=== PATIENT | female | born 1995 | race Caucasian/White ===

== ENCOUNTER 2016-08-03 05:38 | Inpatient (IN) ==
[2016-08-03] MEDS ORDERED: Ondansetron 4 MG/2 ML VIAL IVP ONE ×2 (06:03→09:40)
[2016-08-03] MEDS ORDERED: 0.9 % Sodium Chloride 1,000 ML IVC ONE (06:03)
[2016-08-03] MEDS ORDERED: *HR* Morphine 2 MG/ML SYRINGE IVP ONE (06:03)
--- NOTE | 2016-08-03 06:08 | Emergency Department Note ---
Disposition Clinical Impression: Appendicitis Abdominal pain Qualifiers: Abdominal location: unspecified location Qualified Code(s): R10.9 - Unspecified abdominal pain Disposition: Admitted As Inpatient Condition: Good Abdominal Pain HPI - General Chief Complaint: ED Abdominal Pain Stated Complaint: vomiting abdominal pain Time Seen by Provider: 08/03/16 05:56 Source: patient Mode of arrival: ambulatory Limitations: no limitations Nursing Notes Reviewed: Yes Vital Signs Reviewed: Yes - History of Present Illness HPI Narrative: 21-year-old female persons for violation of abdominal pain. Patient states pain started 4 hours prior to arrival. No history of said pain in the past. She describes the pain is generalized but more prominent across her lower abdomen. No aggravating or alleviating symptoms identified. Patient has not tried any pain medication prior to arrival. Patient reports some nausea and vomiting following to pain. Patient reports history of constipation but had a bowel movement an hour prior to arrival. Denies any fever or chills. Denies any dysuria or hematuria. Reports that her last menstrual. Approximately a week and a half ago. No vaginal bleeding or discharge. No history of ovarian cysts. No chest pain or shortness of breath. No prior abdominal surgery. Pt Subjective Complaint: abdominal pain Onset (ago): hour(s) Consistency: constant Location: LLQ, RLQ Pain Scale: 9 - Related Data Home Medications Medication Instructions Recorded Confirmed No Known Home Drugs 08/03/16 08/03/16 Allergies Allergy/AdvReac Type Severity Reaction Status Date / Time codeine Allergy Hives Verified 08/03/16 05:41 Penicillins Allergy Hives Verified 08/03/16 05:41 All systems ED: reviewed and negative except as stated. Constitutional: Reports: as per HPI. Denies: fever, chills Eyes: Reports: as per HPI ENT ED: Reports: as per HPI Cardiovascular: Reports: as per HPI. Denies: chest pain Respiratory: Reports: as per HPI. Denies: dyspnea Gastrointestinal: Reports: as per HPI, abdominal pain, nausea, vomiting, constipation. Denies: diarrhea Genitourinary: Reports: as per HPI. Denies: dysuria Musculoskeletal: Reports: as per HPI Integumentary: Reports: as per HPI Neurological: Reports: as per HPI Psychiatric: Reports: as per HPI Endocrine: Reports: as per HPI Hematological/Lymphatic: Reports: as per HPI Abdominal Pain PMH - Past Medical History Medical history: Reports: no medical history Female Surgical History: Reports: other PHOTOGRAPHERS' MODEL history: Reports: no PHOTOGRAPHERS' MODEL history Psychiatric history: Reports: no psych history - Social History Smoking status: Current every day smoker Alcohol use: Reports: occasionally Drug use: Reports: none Physical Exam - General Limitations: no limitations General appearance: alert, in no apparent distress - Head Head exam: atraumatic, normal inspection - Eye Eye exam: Present: normal appearance, EOMI - ENT ENT exam: normal exam, mucous membranes moist - Neck Neck exam: Present: normal inspection, trachea midline - Chest Chest inspection: Present: normal inspection, symmetric chest wall rise - Respiratory Respiratory exam: Present: normal lung sounds bilaterally. Absent: respiratory distress - Cardiovascular Cardiovascular exam: Present: regular rate, normal rhythm - Abdominal Exam Abdominal exam: Present: soft, tenderness (Moderate tenderness with direct palpation of the lower abdomen), normal bowel sounds. Absent: distention, guarding, rebound - Extremities Exam Extremities exam: Present: normal inspection. Absent: pedal edema - Back Exam Back exam: Present: normal inspection. Absent: CVA tenderness (R), CVA tenderness (L) - Neurological Exam Neurological exam: Present: alert, oriented X3 - Skin Skin exam: Present: warm, dry, intact, normal color Course Course Narrative: Patient seen and examined. Patient's abdominal exam is nonsurgical. Patient's symptoms started 4 hours prior to arrival. Noted across the lower abdomen. Patient will eventually get IV fluids, symptomatic treatment, urine, urine was basic lab work. Vital Signs Temperature 97.4 F L 08/03/16 05:41 Pulse Rate 94 08/03/16 05:41 Respiratory Rate 20 08/03/16 05:41 Blood Pressure 149/87 08/03/16 05:41 O2 Sat by Pulse Oximetry 100 08/03/16 05:41 Temperature 98.2 F 08/05/16 05:18 Pulse Rate 77 08/05/16 05:18 Respiratory Rate 16 08/05/16 05:18 Blood Pressure 107/63 08/05/16 05:18 O2 Sat by Pulse Oximetry 95 08/05/16 05:18 Oxygen Delivery Oxygen Delivery Room Air Abdominal Pain - MDM Narrative Medical decision making narrative: 21-year-old female presents with bilateral lower abdominal pain. Pain started approximately 4 hours prior to arrival. Patient denies having history of ovarian cyst or pathology. Patient denies any vaginal bleeding discharge. LMP was a week and a half ago. Patient received IV fluids, pain control labs. At the time of this dictation the patient will be signed out to the oncoming providers. History is also physical exam findings discussed. Disposition is pending. - Lab Data Result diagrams: 08/05/16 03:37 08/03/16 07:00 Lab Results 08/03/16 08/03/16 08/03/16 Range/Units 07:00 07:00 07:49 WBC 15.6 H (4.3-11.1) K/mcL RBC 5.39 H (3.82-4.97) M/mcL Hgb 15.3 (11.5-15.4) g/dL Hct 46.9 H (35.3-44.9) % MCV 87.0 (83.0-100.0) fL MCH 28.4 (28.0-33.3) pg MCHC 32.6 (31.6-35.5) g/dL RDW 13.5 (11.5-14.5) % Plt Count 247 (140-400) K/mcL MPV 9.0 L (9.4-12.4) fL Immature Gran % 0.4 (0-4) % Seg Neutrophils % 87.4 % Lymphocytes % 6.4 % Monocytes % 4.5 % Eosinophils % 0.9 % Basophils % 0.4 % Neutrophils # 13.7 H (1.6-8.9) K/mcL Lymphocytes # 1.0 (0.6-4.6) K/mcL Monocytes # 0.7 (0.0-1.3) K/mcL Eosinophils # 0.1 (0.0-0.6) K/mcL Basophils # 0.1 (0.0-0.2) K/mcL Sodium 139 (136-145) mEq/L Potassium 4.0 (3.5-4.5) mEq/L Chloride 105 (98-109) mEq/L Carbon Dioxide 20 (19-29) mEq/L BUN 11 (7-20) mg/dL Creatinine 0.79 (0.57-1.11) mg/dL Est GFR ( Amer) > 60 (> 60) Est GFR (Non-Af Amer) > 60 (> 60) BUN/Creatinine Ratio 14 (6-26) Glucose 108 H (70-99) mg/dL Calculated Osmolality 288 (280-300) Lactic Acid (0.5-2.2) mmol/L Calcium 9.5 (8.6-10.8) mg/dL Total Bilirubin 0.3 (0.2-1.2) mg/dL Direct Bilirubin 0.1 (0.0-0.5) mg/dL Indirect Bilirubin 0.2 (0.0-1.2) mg/dL AST 19 (5-34) Units/L ALT 14 (0-55) Units/L Alkaline Phosphatase 60 (38-126) Units/L Serum Total Protein 8.0 (6.0-8.3) g/dL Albumin 4.0 (3.5-5.0) g/dL Globulin 4.0 H (2.4-3.5) g/dL Albumin/Globulin Ratio 1.0 L (1.1-2.2) Lipase 23 (8-78) Units/L Serum , Qual (Negative) Urine Color (Yellow) Urine Clarity (Clear) Urine pH (5.0-8.0) pH Units Ur Specific Wright (1.010-1.025) Urine Protein (Neg-Trace) mg/dL Urine Glucose (UA) (Normal) mg/dL Urine Ketones (Negative) mg/dL Urine Blood (Negative) Urine Nitrite (Negative) Urine Bilirubin (Negative) Urine Urobilinogen (Normal) mg/dL Ur Leukocyte Esterase (Negative) Ur Culture Indicated? (NO) Urine Test (Negative) Specimen Rejected Hemolyzed 08/03/16 08/03/16 08/03/16 Range/Units 08:06 08:06 08:25 WBC (4.3-11.1) K/mcL RBC (3.82-4.97) M/mcL Hgb (11.5-15.4) g/dL Hct (35.3-44.9) % MCV (83.0-100.0) fL MCH (28.0-33.3) pg MCHC (31.6-35.5) g/dL RDW (11.5-14.5) % Plt Count (140-400) K/mcL MPV (9.4-12.4) fL Immature Gran % (0-4) % Seg Neutrophils % % Lymphocytes % % Monocytes % % Eosinophils % % Basophils % % Neutrophils # (1.6-8.9) K/mcL Lymphocytes # (0.6-4.6) K/mcL Monocytes # (0.0-1.3) K/mcL Eosinophils # (0.0-0.6) K/mcL Basophils # (0.0-0.2) K/mcL Sodium (136-145) mEq/L Potassium (3.5-4.5) mEq/L Chloride (98-109) mEq/L Carbon Dioxide (19-29) mEq/L BUN (7-20) mg/dL Creatinine (0.57-1.11) mg/dL Est GFR ( Amer) (> 60) Est GFR (Non-Af Amer) (> 60) BUN/Creatinine Ratio (6-26) Glucose (70-99) mg/dL Calculated Osmolality (280-300) Lactic Acid 0.9 (0.5-2.2) mmol/L Calcium (8.6-10.8) mg/dL Total Bilirubin (0.2-1.2) mg/dL Direct Bilirubin (0.0-0.5) mg/dL Indirect Bilirubin (0.0-1.2) mg/dL AST (5-34) Units/L ALT (0-55) Units/L Alkaline Phosphatase (38-126) Units/L Serum Total Protein (6.0-8.3) g/dL Albumin (3.5-5.0) g/dL Globulin (2.4-3.5) g/dL Albumin/Globulin Ratio (1.1-2.2) Lipase (8-78) Units/L Serum , Qual (Negative) Urine Color Yellow (Yellow) Urine Clarity Clear (Clear) Urine pH 7.0 (5.0-8.0) pH Units Ur Specific Wright 1.025 (1.010-1.025) Urine Protein Negative (Neg-Trace) mg/dL Urine Glucose (UA) Normal (Normal) mg/dL Urine Ketones Negative (Negative) mg/dL Urine Blood Negative (Negative) Urine Nitrite Negative (Negative) Urine Bilirubin Negative (Negative) Urine Urobilinogen Normal (Normal) mg/dL Ur Leukocyte Esterase Negative (Negative) Ur Culture Indicated? NO (NO) Urine Test Negative (Negative) Specimen Rejected 08/03/16 Range/Units 08:25 WBC (4.3-11.1) K/mcL RBC (3.82-4.97) M/mcL Hgb (11.5-15.4) g/dL Hct (35.3-44.9) % MCV (83.0-100.0) fL MCH (28.0-33.3) pg MCHC (31.6-35.5) g/dL RDW (11.5-14.5) % Plt Count (140-400) K/mcL MPV (9.4-12.4) fL Immature Gran % (0-4) % Seg Neutrophils % % Lymphocytes % % Monocytes % % Eosinophils % % Basophils % % Neutrophils # (1.6-8.9) K/mcL Lymphocytes # (0.6-4.6) K/mcL Monocytes # (0.0-1.3) K/mcL Eosinophils # (0.0-0.6) K/mcL Basophils # (0.0-0.2) K/mcL Sodium (136-145) mEq/L Potassium (3.5-4.5) mEq/L Chloride (98-109) mEq/L Carbon Dioxide (19-29) mEq/L BUN (7-20) mg/dL Creatinine (0.57-1.11) mg/dL Est GFR ( Amer) (> 60) Est GFR (Non-Af Amer) (> 60) BUN/Creatinine Ratio (6-26) Glucose (70-99) mg/dL Calculated Osmolality (280-300) Lactic Acid (0.5-2.2) mmol/L Calcium (8.6-10.8) mg/dL Total Bilirubin (0.2-1.2) mg/dL Direct Bilirubin (0.0-0.5) mg/dL Indirect Bilirubin (0.0-1.2) mg/dL AST (5-34) Units/L ALT (0-55) Units/L Alkaline Phosphatase (38-126) Units/L Serum Total Protein (6.0-8.3) g/dL Albumin (3.5-5.0) g/dL Globulin (2.4-3.5) g/dL Albumin/Globulin Ratio (1.1-2.2) Lipase (8-78) Units/L Serum , Qual Negative (Negative) Urine Color (Yellow) Urine Clarity (Clear) Urine pH (5.0-8.0) pH Units Ur Specific Wright (1.010-1.025) Urine Protein (Neg-Trace) mg/dL Urine Glucose (UA) (Normal) mg/dL Urine Ketones (Negative) mg/dL Urine Blood (Negative) Urine Nitrite (Negative) Urine Bilirubin (Negative) Urine Urobilinogen (Normal) mg/dL Ur Leukocyte Esterase (Negative) Ur Culture Indicated? (NO) Urine Test (Negative) Specimen Rejected S.Leonela - Paul Situation: Demographics Background: Presenting Complaint Assessment: Vital Signs, Course and respsone to treatment, Patient/Family Expectation, Pertinant Lab Results Recommendation: Barrier(s) to disposition, Recommendation based on pending studies, treatments, or consults SMiguelina Report Given to: Dr. Jay Miller Repor Time: 06:50 Attestation Statement - Attestation Attestation: I examined this patient and my medical decision-making was reviewed with the CARTOGRAPHY SUPERVISOR/PA/Advanced Practice Nurse/Resident Physician. I agree with the documented findings, disposition and treatment plan as described except to the extent set forth below. Patient to the emergency department with abdominal pain. Onset 4-5 hours ago. She describes it as diffuse worsen or lower abdomen. No fever. Patient states she ate tacos for dinner last night. On exam she is uncomfortable in no distress. Diffuse abdominal tenderness worse over the lower abdomen. Plan. Basic labs and pain control. CT. SIgned out to day shift pending CT scan.
[2016-08-03 07:30] LABS: Alanine Aminotransferase 14 Units/L (0-55); Alkaline Phosphatase 60 Units/L (38-126); Aspartate Amino Transferase 19 Units/L (5-34); BUN/Creatinine Ratio 14 (6-26); Bilirubin,Direct 0.1 mg/dL (0.0-0.5); Bilirubin,Indirect 0.2 mg/dL (0.0-1.2); Bilirubin,Total 0.3 mg/dL (0.2-1.2); Blood Urea Nitrogen 11 mg/dL (7-20); Calcium 9.5 mg/dL (8.6-10.8); Carbon Dioxide 20 mEq/L (19-29); Chloride 105 mEq/L (98-109); Glucose 108 mg/dL (70-99); Lipase 23 Units/L (8-78); Osmolality,Calculated 288 (280-300); Sodium 139 mEq/L (136-145); eGFR For African Americans > 60 (> 60); eGFR For Non-African Americans > 60 (> 60)
[2016-08-03 07:33] LABS: Basophils # 0.1 K/mcL (0.0-0.2); Basophils % 0.4 %; Eosinophils # 0.1 K/mcL (0.0-0.6); Eosinophils % 0.9 %; Hematocrit 46.9 % (35.3-44.9); Hemoglobin 15.3 g/dL (11.5-15.4); Immature Granulocytes % 0.4 % (0-4); Lymphocytes % 6.4 %; Mean Corpuscular HGB Conc 32.6 g/dL (31.6-35.5); Mean Corpuscular Hemoglobin 28.4 pg (28.0-33.3); Monocytes # 0.7 K/mcL (0.0-1.3); Monocytes % 4.5 %; Neutrophils # 13.7 K/mcL (1.6-8.9); Platelet Count 247 K/mcL (140-400); Red Blood Count 5.39 M/mcL (3.82-4.97); Red Cell Distribution Width 13.5 % (11.5-14.5); Segmented Neutrophils % 87.4 %
--- NOTE | 2016-08-03 07:53 | Emergency Department Note ---
START Narrative - START START: I examined this patient and my medical decision-making was reviewed with the CLINICAL PROJECT LEADER/PA/Advanced Practice Nurse/Resident Physician. I agree with the documented findings, disposition and treatment plan as described except to the extent set forth below. ED attending note: Patient seen with emergency medicine resident Dr. Thompson. Please see a copy of his note for details of the H&P, evaluation, management and disposition of this patient. We independently had [id number] contact with the patient Briefly: A 21-year-old female otherwise healthy evaluated by the overnight team of Dr. Greco and medical's. Please see copy of their notes for details up worsening counter. Signed out at 07 100 to follow up the results of the imaging and lab work that is pending. Patient was reevaluated this morning at 7 AM she is awake and alert lying in bed she is comfortable. Disposition pending. Patient stable.
--- NOTE | 2016-08-03 08:10 | Emergency Department Note ---
Disposition Clinical Impression: Abdominal pain Qualifiers: Abdominal location: unspecified location Qualified Code(s): R10.9 - Unspecified abdominal pain Appendicitis Qualifiers: Appendicitis type: acute appendicitis Acute appendicitis type: other Qualified Code(s): K35.89 - Other acute appendicitis Disposition: Still a Patient Condition: Good Referrals: Unassigned,Provider [Non-Partnered Physician] - Forms: ED Satisfaction Letter, Work/School Release Time of Disposition: 09:09 Abdominal Pain HPI - General Chief Complaint: ED Abdominal Pain Stated Complaint: vomiting abdominal pain Time Seen by Provider: 08/03/16 05:56 Source: patient Mode of arrival: ambulatory Nursing Notes Reviewed: Yes Vital Signs Reviewed: Yes - History of Present Illness Pt Subjective Complaint: abdominal pain Location: LLQ, RLQ Pain Scale: 4 - Related Data Allergies Allergy/AdvReac Type Severity Reaction Status Date / Time codeine Allergy Hives Verified 08/03/16 05:41 Penicillins Allergy Hives Verified 08/03/16 05:41 Constitutional: Reports: as per HPI. Denies: fever, chills Eyes: Reports: as per HPI ENT ED: Reports: as per HPI Cardiovascular: Reports: as per HPI. Denies: chest pain Respiratory: Reports: as per HPI. Denies: dyspnea Gastrointestinal: Reports: as per HPI, abdominal pain, nausea, vomiting, constipation. Denies: diarrhea Genitourinary: Reports: as per HPI. Denies: dysuria Musculoskeletal: Reports: as per HPI Integumentary: Reports: as per HPI Neurological: Reports: as per HPI Psychiatric: Reports: as per HPI Endocrine: Reports: as per HPI Hematological/Lymphatic: Reports: as per HPI Abdominal Pain PMH - Past Medical History Medical history: Reports: no medical history Female Surgical History: Reports: other ACCOUNTS PAYABLE SPECIALIST history: Reports: no ACCOUNTS PAYABLE SPECIALIST history Psychiatric history: Reports: no psych history - Social History Smoking status: Current every day smoker Alcohol use: Reports: occasionally Drug use: Reports: none Physical Exam - General Limitations: no limitations General appearance: alert, in no apparent distress Course Course Narrative: Sign out received from Dr. Otto. Urinalysis urine. CT scan of abdomen are still pending. Patient is resting comfortably. She did present to the emergency department with abdominal pain. Presented with sudden onset overnight. She states that her pain is very minimal at this time. Her abdomen is soft and nontender on palpation. She is mentating appropriately. She states that she feels comfortable and is not requiring any more pain medication at this time. She does not appear in any distress. - Reevaluation(s) Reevaluation #1: Patient has an acute appendicitis on CT scan. We will consult Dr. Shelley. Patient is still resting comfortably in bed. She states she does not have a history of any surgeries and does have surgeon preference. She refuses pain medication at this time. Time: 08:55 - Consultations Consultation #1: Dr Shelley will see Pt in ED. Spoke with him on the phone. Time: 09:08 Vital Signs Temperature 97.4 F L 08/03/16 05:41 Pulse Rate 94 08/03/16 05:41 Respiratory Rate 20 08/03/16 05:41 Blood Pressure 149/87 08/03/16 05:41 O2 Sat by Pulse Oximetry 100 08/03/16 05:41 Temperature 97.4 F L 08/03/16 05:41 Pulse Rate 101 08/03/16 09:00 Respiratory Rate 16 08/03/16 09:00 Blood Pressure 148/118 08/03/16 09:00 O2 Sat by Pulse Oximetry 98 08/03/16 09:00 Oxygen Delivery Oxygen Delivery Room Air Abdominal Pain - Lab Data Result diagrams: 08/03/16 07:00 08/03/16 07:00 Lab Results 08/03/16 08/03/16 08/03/16 Range/Units 07:00 07:00 07:49 WBC 15.6 H (4.3-11.1) K/mcL RBC 5.39 H (3.82-4.97) M/mcL Hgb 15.3 (11.5-15.4) g/dL Hct 46.9 H (35.3-44.9) % MCV 87.0 (83.0-100.0) fL MCH 28.4 (28.0-33.3) pg MCHC 32.6 (31.6-35.5) g/dL RDW 13.5 (11.5-14.5) % Plt Count 247 (140-400) K/mcL MPV 9.0 L (9.4-12.4) fL Immature Gran % 0.4 (0-4) % Seg Neutrophils % 87.4 % Lymphocytes % 6.4 % Monocytes % 4.5 % Eosinophils % 0.9 % Basophils % 0.4 % Neutrophils # 13.7 H (1.6-8.9) K/mcL Lymphocytes # 1.0 (0.6-4.6) K/mcL Monocytes # 0.7 (0.0-1.3) K/mcL Eosinophils # 0.1 (0.0-0.6) K/mcL Basophils # 0.1 (0.0-0.2) K/mcL Sodium 139 (136-145) mEq/L Potassium 4.0 (3.5-4.5) mEq/L Chloride 105 (98-109) mEq/L Carbon Dioxide 20 (19-29) mEq/L BUN 11 (7-20) mg/dL Creatinine 0.79 (0.57-1.11) mg/dL Est GFR ( Amer) > 60 (> 60) Est GFR (Non-Af Amer) > 60 (> 60) BUN/Creatinine Ratio 14 (6-26) Glucose 108 H (70-99) mg/dL Calculated Osmolality 288 (280-300) Lactic Acid (0.5-2.2) mmol/L Calcium 9.5 (8.6-10.8) mg/dL Total Bilirubin 0.3 (0.2-1.2) mg/dL Direct Bilirubin 0.1 (0.0-0.5) mg/dL Indirect Bilirubin 0.2 (0.0-1.2) mg/dL AST 19 (5-34) Units/L ALT 14 (0-55) Units/L Alkaline Phosphatase 60 (38-126) Units/L Serum Total Protein 8.0 (6.0-8.3) g/dL Albumin 4.0 (3.5-5.0) g/dL Globulin 4.0 H (2.4-3.5) g/dL Albumin/Globulin Ratio 1.0 L (1.1-2.2) Lipase 23 (8-78) Units/L Serum , Qual (Negative) Urine Color (Yellow) Urine Clarity (Clear) Urine pH (5.0-8.0) pH Units Ur Specific Clayton (1.010-1.025) Urine Protein (Neg-Trace) mg/dL Urine Glucose (UA) (Normal) mg/dL Urine Ketones (Negative) mg/dL Urine Blood (Negative) Urine Nitrite (Negative) Urine Bilirubin (Negative) Urine Urobilinogen (Normal) mg/dL Ur Leukocyte Esterase (Negative) Ur Culture Indicated? (NO) Urine Test (Negative) Specimen Rejected Hemolyzed 08/03/16 08/03/16 08/03/16 Range/Units 08:06 08:06 08:25 WBC (4.3-11.1) K/mcL RBC (3.82-4.97) M/mcL Hgb (11.5-15.4) g/dL Hct (35.3-44.9) % MCV (83.0-100.0) fL MCH (28.0-33.3) pg MCHC (31.6-35.5) g/dL RDW (11.5-14.5) % Plt Count (140-400) K/mcL MPV (9.4-12.4) fL Immature Gran % (0-4) % Seg Neutrophils % % Lymphocytes % % Monocytes % % Eosinophils % % Basophils % % Neutrophils # (1.6-8.9) K/mcL Lymphocytes # (0.6-4.6) K/mcL Monocytes # (0.0-1.3) K/mcL Eosinophils # (0.0-0.6) K/mcL Basophils # (0.0-0.2) K/mcL Sodium (136-145) mEq/L Potassium (3.5-4.5) mEq/L Chloride (98-109) mEq/L Carbon Dioxide (19-29) mEq/L BUN (7-20) mg/dL Creatinine (0.57-1.11) mg/dL Est GFR ( Amer) (> 60) Est GFR (Non-Af Amer) (> 60) BUN/Creatinine Ratio (6-26) Glucose (70-99) mg/dL Calculated Osmolality (280-300) Lactic Acid 0.9 (0.5-2.2) mmol/L Calcium (8.6-10.8) mg/dL Total Bilirubin (0.2-1.2) mg/dL Direct Bilirubin (0.0-0.5) mg/dL Indirect Bilirubin (0.0-1.2) mg/dL AST (5-34) Units/L ALT (0-55) Units/L Alkaline Phosphatase (38-126) Units/L Serum Total Protein (6.0-8.3) g/dL Albumin (3.5-5.0) g/dL Globulin (2.4-3.5) g/dL Albumin/Globulin Ratio (1.1-2.2) Lipase (8-78) Units/L Serum , Qual (Negative) Urine Color Yellow (Yellow) Urine Clarity Clear (Clear) Urine pH 7.0 (5.0-8.0) pH Units Ur Specific Clayton 1.025 (1.010-1.025) Urine Protein Negative (Neg-Trace) mg/dL Urine Glucose (UA) Normal (Normal) mg/dL Urine Ketones Negative (Negative) mg/dL Urine Blood Negative (Negative) Urine Nitrite Negative (Negative) Urine Bilirubin Negative (Negative) Urine Urobilinogen Normal (Normal) mg/dL Ur Leukocyte Esterase Negative (Negative) Ur Culture Indicated? NO (NO) Urine Test Negative (Negative) Specimen Rejected 08/03/16 Range/Units 08:25 WBC (4.3-11.1) K/mcL RBC (3.82-4.97) M/mcL Hgb (11.5-15.4) g/dL Hct (35.3-44.9) % MCV (83.0-100.0) fL MCH (28.0-33.3) pg MCHC (31.6-35.5) g/dL RDW (11.5-14.5) % Plt Count (140-400) K/mcL MPV (9.4-12.4) fL Immature Gran % (0-4) % Seg Neutrophils % % Lymphocytes % % Monocytes % % Eosinophils % % Basophils % % Neutrophils # (1.6-8.9) K/mcL Lymphocytes # (0.6-4.6) K/mcL Monocytes # (0.0-1.3) K/mcL Eosinophils # (0.0-0.6) K/mcL Basophils # (0.0-0.2) K/mcL Sodium (136-145) mEq/L Potassium (3.5-4.5) mEq/L Chloride (98-109) mEq/L Carbon Dioxide (19-29) mEq/L BUN (7-20) mg/dL Creatinine (0.57-1.11) mg/dL Est GFR ( Amer) (> 60) Est GFR (Non-Af Amer) (> 60) BUN/Creatinine Ratio (6-26) Glucose (70-99) mg/dL Calculated Osmolality (280-300) Lactic Acid (0.5-2.2) mmol/L Calcium (8.6-10.8) mg/dL Total Bilirubin (0.2-1.2) mg/dL Direct Bilirubin (0.0-0.5) mg/dL Indirect Bilirubin (0.0-1.2) mg/dL AST (5-34) Units/L ALT (0-55) Units/L Alkaline Phosphatase (38-126) Units/L Serum Total Protein (6.0-8.3) g/dL Albumin (3.5-5.0) g/dL Globulin (2.4-3.5) g/dL Albumin/Globulin Ratio (1.1-2.2) Lipase (8-78) Units/L Serum , Qual Negative (Negative) Urine Color (Yellow) Urine Clarity (Clear) Urine pH (5.0-8.0) pH Units Ur Specific Clayton (1.010-1.025) Urine Protein (Neg-Trace) mg/dL Urine Glucose (UA) (Normal) mg/dL Urine Ketones (Negative) mg/dL Urine Blood (Negative) Urine Nitrite (Negative) Urine Bilirubin (Negative) Urine Urobilinogen (Normal) mg/dL Ur Leukocyte Esterase (Negative) Ur Culture Indicated? (NO) Urine Test (Negative) Specimen Rejected
[2016-08-03 08:17] LABS: Bilirubin,Urine Negative (Negative); Blood,Urine Negative (Negative); Clarity,Urine Clear (Clear); Color,Urine Yellow (Yellow); Glucose,Urine (UA) Normal (Normal); Ketones,Urine Negative (Negative); Leukocyte Esterase,Urine Negative (Negative); Nitrite,Urine Negative (Negative); Protein,Urine Negative (Neg-Trace); Specific Gravity,Urine 1.025 (1.010-1.025); Urobilinogen,Urine Normal (Normal)
[2016-08-03] MEDS ORDERED: *HR* Midazolam HCl 2 MG/2 ML VIAL ONE (09:24)
[2016-08-03] MEDS ORDERED: Dexamethasone 4 MG/ML VIAL ONE (09:24)
[2016-08-03] MEDS ORDERED: Ondansetron 4 MG/2 ML VIAL ONE (09:24)
[2016-08-03] MEDS ORDERED: *HR* Rocuronium Bromide 50 MG/5 ML VIAL ONE (09:24)
[2016-08-03] MEDS ORDERED: *HR* Propofol 200 MG/20 ML VIAL IVP ONE (09:24)
[2016-08-03] MEDS ORDERED: Lidocaine -MPF 2% 2 ML VIAL ONE (09:24)
[2016-08-03] MEDS ORDERED: *HR* FentaNYL (PF) 100 MCG/2 ML VIAL ONE ×2 (09:24→12:29)
[2016-08-03] MEDS ORDERED: *HR* Succinylcholine 200 MG/10 ML VIAL IVP ONE (09:24)
--- NOTE | 2016-08-03 09:39 | Anesthesia Evaluation PreOp ---
Date of Encounter: 08/03/16 Time of Encounter: 12:26 - Past History Planned Operation: Lap. Appy Cardiac History: Denies any Significant Hx Pulmonary History: Smoker BASKETBALL COACH History: Denies Any Significant HX Other Medical History: Denies Any Significant HX Anesthesia History: No Prior Anesthetic Complications, Past Anesthesia (none) : No Test: Negative (08/03/2016) Alcohol Use: occasionally Drug use: marijuana Medications and Allergies Allergies codeine Allergy (Verified 08/03/16 05:41) Hives Penicillins Allergy (Verified 08/03/16 05:41) Hives - Meds/Allergy Pre-op Review Medications Reviewed: Yes Allergies Reviewed: Yes Beta Blockers on Current Med List: No Anesthesia Results - Labs 08/03/16 07:00 08/03/16 07:00 Laboratory Tests 08/03/16 08:25 Serum , Qual Negative Anesthesia Exam O2 Sat Height 1.7 m Weight 68.039 kg O2 Sat by Pulse Oximetry 97 O2 Sat by Pulse Oximetry 98 O2 Sat by Pulse Oximetry 99 O2 Sat by Pulse Oximetry 99 O2 Sat by Pulse Oximetry 100 O2 Sat by Pulse Oximetry 100 O2 Sat by Pulse Oximetry 100 O2 Sat by Pulse Oximetry 100 Vital Signs Temp Pulse Resp BP Pulse Ox 97.4 F L 94 20 149/87 100 08/03/16 05:41 08/03/16 05:41 08/03/16 05:41 08/03/16 05:41 08/03/16 05:41 Height: 5'7'' Weight: 150# NPO (# of Hours): > 8 hrs Pain Scale: 2 Pain Scale Used: Numeric (1 - 10) - HEENT Pupil (Motor): Pupils equal, EOMI Mallampati: II Teeth: Normal Oral Opening: Greater than 3 - BASKETBALL COACH LOC: Oriented BASKETBALL COACH Motor: Normal RUE, Normal LUE, Normal RLE, Normal LLE, Normal Face BASKETBALL COACH Sensory: Normal: RUE, LUE, RLE, LLE, Face - Cardiac Rhythm: Regular Murmur: None JVD: No Carotid Bruit: No - Pulmonary Breath Sounds: bilateral Clear Respiratory Effort: Symmetrical Anesthesia Assess/Plan ASA Score: 2, E Modified Jade Scale for Level of Consciousness: Cooperative, oriented, and tranquil Anesthetic Plan: General Autologous Blood: Yes Monitoring Plan: Standard Monitors Recovery Plan: PACU
[2016-08-03] MEDS ORDERED: *HR* Labetalol 100 MG/20 ML MDV IVP PRN (09:40)
[2016-08-03] MEDS ORDERED: Albuterol 2.5 MG/3 ML NEBULIZER IH ONE (09:40)
[2016-08-03] MEDS ORDERED: *HR* Promethazine 25 MG/ML VIAL IVP PRN (09:40)
[2016-08-03] MEDS ORDERED: *HR* HYDROmorphone (PF) 1 MG/ML SYRINGE IVP PRN (09:40)
[2016-08-03] MEDS ORDERED: Bupivacaine/EPI 1:200k 0.25%PF 10 ML VIAL INFILT ONE (11:34)
[2016-08-03] MEDS ORDERED: MetroNIDAZOLE 500 MG/100 ML 500 MG/100 ML BAG IVPB STA ×2 (12:01→12:21)
[2016-08-03] MEDS ORDERED: Ringers Solution, Lactated 1,000 ML ONE ×2 (12:12→13:54)
--- NOTE | 2016-08-03 12:34 | General Surg History&Physical ---
Date of Encounter: 08/03/16 Time of Encounter: 11:30 History of Present Illness Chief complaint: Acute right lower quadrant abdominal pain, acute appendicitis HPI: Ms. De Leon is a 21 year old female referred to surgical services after presenting to the emergency department with acute onset right lower quadrant abdominal pain with nausea vomiting since approximately 0100 hrs. this morning. Leukocytosis is present along with the acute right lower quadrant abdominal tenderness. CT demonstrates findings consistent with acute appendicitis prompting surgical referral. Past medical history: Unremarkable Surgical history: Bilateral myringotomy tubes as a child Allergies: Penicillin, codeine - exposure to penicillin causing hives; codeine causing nausea vomiting Medications: No routine meds Social history: G0, P0; patient admits to approximately 3 cigarettes daily for the past few months; patient also admits to an occasional alcoholic beverage; she denies any illicit drug use Family history: Noncontributory Physical examination: Age-appropriate female in no acute distress. Patient indicates that she was in considerable pain with nausea vomiting on presentation to the emergency department with these symptoms have been "knocked down" with IV meds. The patient is afebrile, 97.4; pulse 109, respirations 18, blood pressure 137/94. PO2 on room air 98%. Patient is 1.7 m tall, 68.4 kg with a BMI of 23.5 Skin: Warm, no obvious jaundice Lungs: Bilaterally clear with no obvious abdominal pain with deep inspiration Cardiac: Rate rapid but without obvious murmurs Abdomen: Soft with tenderness in the right lower quadrant as well as tenderness referred to the right lower quadrant from the left lower quadrant (positive Rovsing sign). No obvious intra-abdominal masses. Few bowel sounds. Extremities: No obvious clubbing cyanosis or edema Laboratories: White count 15.6, hemoglobin 15.3, hematocrit 46.9; platelet count 247,000 Electrolytes, BUN/creatinine within normal limits; LFTs also within normal limits. Serum negative Urinalysis unremarkable CT: Personally reviewed with [facility]. Findings include dilated appendix with associated wall thickening and enhancement measuring up to 12 mm. The presence of periappendiceal stranding as well as stranding of the adjacent small bowel loops is described. Trace pelvic fluid without pelvic adenopathy is noted. The other organs, bowel and intraperitoneal structures were unremarkable. Impression: 21-year-old female with new onset right lower quadrant abdominal pain with nausea and vomiting. Physical findings, laboratories, and CT findings consistent with acute appendicitis. Based on my examination and review of the labs and CT, surgery has been recommended. Alternative treatment includes admission, IV antibiotics and pain control. Both treatment options were discussed including the risks. The patient is a reasonable candidate for laparoscopic appendectomy but understands that an open appendectomy may become necessary. Risks of surgery include hemorrhage, infection, intra-abdominal abscess, injury to adjacent structures such as bowel, small intestine, bladder and ureters. Possible removal of a normal appendix was also discussed. If a normal appendix is encountered it will be removed to eliminate repeat acute appendicitis in the future. Risks of nonoperative surgery include progressive pain and progressive inflammation and distention of the appendix with subsequent perforation and significant associated morbidity. The patient, and her attendant family, expressed understanding and have selected to proceed with the surgical option. Consent has been obtained. Past Med Surg Social Fam HX - Past Medical History Medical history: no medical history Psychiatric history: no psych history - Social History Smoking Status: Current every day smoker Smokeless Tobacco Status: No Alcohol use: occasionally Drug use: none Medications and Allergies Allergies codeine Allergy (Verified 08/03/16 05:41) Hives Penicillins Allergy (Verified 08/03/16 05:41) Hives Review of Systems All systems PM: A 10-system review of systems was performed and is negative for pertinent findings except as documented above in the HPI. General Surgery Exam Initial Vital Signs Temp Pulse Resp BP Pulse Ox 97.4 F L 94 20 149/87 100 08/03/16 05:41 08/03/16 05:41 08/03/16 05:41 08/03/16 05:41 08/03/16 05:41 Results - Labs 08/03/16 07:00 08/03/16 07:00 Abnormal lab results WBC 15.6 K/mcL (4.3-11.1) H 08/03/16 07:00 RBC 5.39 M/mcL (3.82-4.97) H 08/03/16 07:00 Hct 46.9 % (35.3-44.9) H 08/03/16 07:00 MPV 9.0 fL (9.4-12.4) L 08/03/16 07:00 Neutrophils # 13.7 K/mcL (1.6-8.9) H 08/03/16 07:00 Glucose 108 mg/dL (70-99) H 08/03/16 07:00 Globulin 4.0 g/dL (2.4-3.5) H 08/03/16 07:00 Albumin/Globulin Ratio 1.0 (1.1-2.2) L 08/03/16 07:00 Diabetes panel 08/03/16 Range/Units 07:00 Sodium 139 (136-145) mEq/L Potassium 4.0 (3.5-4.5) mEq/L Chloride 105 (98-109) mEq/L Carbon Dioxide 20 (19-29) mEq/L BUN 11 (7-20) mg/dL Creatinine 0.79 (0.57-1.11) mg/dL Glucose 108 H (70-99) mg/dL Calcium 9.5 (8.6-10.8) mg/dL AST 19 (5-34) Units/L ALT 14 (0-55) Units/L Alkaline Phosphatase 60 (38-126) Units/L Albumin 4.0 (3.5-5.0) g/dL Calcium panel 08/03/16 Range/Units 07:00 Calcium 9.5 (8.6-10.8) mg/dL Albumin 4.0 (3.5-5.0) g/dL Pituitary panel 08/03/16 Range/Units 07:00 Sodium 139 (136-145) mEq/L Potassium 4.0 (3.5-4.5) mEq/L Chloride 105 (98-109) mEq/L Carbon Dioxide 20 (19-29) mEq/L BUN 11 (7-20) mg/dL Creatinine 0.79 (0.57-1.11) mg/dL Glucose 108 H (70-99) mg/dL Calcium 9.5 (8.6-10.8) mg/dL Adrenal panel 08/03/16 Range/Units 07:00 Sodium 139 (136-145) mEq/L Potassium 4.0 (3.5-4.5) mEq/L Chloride 105 (98-109) mEq/L Carbon Dioxide 20 (19-29) mEq/L BUN 11 (7-20) mg/dL Creatinine 0.79 (0.57-1.11) mg/dL Glucose 108 H (70-99) mg/dL Calcium 9.5 (8.6-10.8) mg/dL Total Bilirubin 0.3 (0.2-1.2) mg/dL AST 19 (5-34) Units/L ALT 14 (0-55) Units/L Alkaline Phosphatase 60 (38-126) Units/L Albumin 4.0 (3.5-5.0) g/dL All other labs normal.
[2016-08-03] MEDS ORDERED: MetroNIDAZOLE 500 MG/100 ML 500 MG/100 ML BAG IVPB ONE (12:45)
[2016-08-03] MEDS ORDERED: Neostigmine Methylsulfate 3 MG/3 ML SYRINGE ONE (13:28)
[2016-08-03] MEDS ORDERED: Ringers Solution, Lactated 500 ML IVC ONE (14:03)
--- NOTE | 2016-08-03 14:11 | Operative Note ---
Date of procedure: 08/03/16 Pre-op diagnosis: acute appendicitis Post-op diagnosis: same Procedure: laparoscopic appendectomy Complications: none apparent Anesthesia: GETA Local Anesthetics: 0.25% Sensorcaine HCL with Epinephrine 1:200,000 SubQ (cc) ( 20 mL) Surgeon: Kirit Shelley Estimated blood loss (cc): 5 IV fluids (cc): 1,000 Specimen: appendix Condition: stable Disposition: PACU Procedure in Detail: The patient was brought to the operating room where she was placed supine upon the operating room table. The patient was appropriately identified as to person and procedure. The accuracy of this information is confirmed by the procedure. The patient was then intubated and anesthetized the supervision of Dr. Deny Antonio. The abdomen was prepped and draped in usual sterile fashion. When examined under anesthesia, no discernible mass or fullness was detected in the right lower quadrant. Several milliliters of 0.25% bupivacaine with 1-200, 000 units epinephrine was infiltrated into the infraumbilical skin. A small transverse incision was made, dissection was carried to the fascia. The fascia was grasped and elevated. Additional bupivacaine with epinephrine was infiltrated and then the fascia was incised followed by placement of an 11 mm Xcel port. The rigid laparoscope was placed within the operative to visualize passage through the layers of the anterior abdominal wall. Once the abdominal cavity was accessed, the obturator was replaced with a rigid laparoscope and the abdomen was insufflated with gaseous carbon dioxide. There was no obvious visible injury from establishing the port. Under direct visualization a 5 mm port was placed in the midline suprapubic abdomen, a 12 mm port was established in the left lower quadrant midclavicular line. Both sites were infiltrated with about bupivacaine with epinephrine solution. Using endoscopic [place] the cecum was elevated and the appendix identified. The appendix was enlarged with acute inflammation consistent with the clinical diagnosis. The mesoappendix was divided at the junction of the appendix with the cecum. The appendix was transected at its junction with the cecum using an Ethicon ATS 45 mm stapler (blue cartridge). The mesoappendix was then transected with a second application of the Ethicon ATS 45 mm stapler using a vascular cartridge. Once the appendix was from the surrounding structures and was placed in an endoscopic pouch and removed through the infraumbilical opening. The appendix was sent to pathology. The staple lines were inspected and deemed to be intact. Hemostasis was also adequate. A small amount of inflammatory fluid was encountered in the right paracolic gutter and aspirated with an endoscopic suction device. No other significant abnormalities were identified. Pneumoperitoneum was evacuated, the instrumentation removed. The fascia of the infraumbilical opening was closed with interrupted [id number] 2-0 Vicryl using S retractors. The skin edges of the ports were approximated with subcuticular 4-0 Vicryl. The incisions were sealed with Dermabond dermal adhesive. The patient was taken to PACU in stable condition. Needle, sponge, and instrument counts were correct at the close of the case. Total volume of 0.25% bupivacaine with 1-200,000 units epinephrine used during this procedure, 20 mL.
--- NOTE | 2016-08-03 14:34 | Anesthesia Evaluation Post Op ---
Date of Encounter: 08/03/16 Time of Encounter: 14:33 - Vital Signs Vital Signs: Vital Signs/O2 Sat, Most Current Temp Pulse Resp BP Pulse Ox 99.0 F 99 20 124/83 99 08/03/16 14:22 08/03/16 14:12 08/03/16 14:12 08/03/16 14:12 08/03/16 14:22 - Lungs Lungs: Clear Ascult./Percussion - Airway Airway: Non-obstructed - Cardiovascular Regular Rate - Mental Status Mental Status: Alert & Oriented, Answers Appropriately - Pain Pain Scale: 0 Pain Scale used: Numeric (1 - 10) - Nausea Vomiting Nausea Vomiting: Not Present - Hydration Hydration: NPO, Has not voided - Discharge PostOp Status: Transfer Patient to floor
[2016-08-03] MEDS ORDERED: Ondansetron 4 MG/2 ML VIAL IVP PRN (14:39)
[2016-08-03] MEDS ORDERED: Acetaminophen 325 MG TABLET PO PRN (14:39)
[2016-08-03] MEDS: *HR* OxyCODONE/APAP 5/325 TABLET PO PRN (15:04)
[2016-08-03] MEDS: *HR* HYDROmorphone (PF) 1 MG/ML SYRINGE IVP PRN ×2 (16:20→21:25)
[2016-08-03] MEDS: Ringers Solution, Lactated 1,000 ML IVC SCH (16:28)
[2016-08-04] MEDS: *HR* HYDROmorphone (PF) 1 MG/ML SYRINGE IVP PRN ×5 (03:17→23:29)
[2016-08-04 05:37] LABS: Basophils % 0.1 %; Hematocrit 39.8 % (35.3-44.9); Immature Granulocytes % 0.4 % (0-4); Lymphocytes # 0.7 K/mcL (0.6-4.6); Lymphocytes % 5.7 %; Mean Corpuscular HGB Conc 32.4 g/dL (31.6-35.5); Mean Corpuscular Hemoglobin 28.5 pg (28.0-33.3); Mean Corpuscular Volume 88.1 fL (83.0-100.0); Mean Platelet Volume 9.5 fL (9.4-12.4); Monocytes # 0.7 K/mcL (0.0-1.3); Neutrophils # 11.5 K/mcL (1.6-8.9); Platelet Count 248 K/mcL (140-400); Red Blood Count 4.52 M/mcL (3.82-4.97); Red Cell Distribution Width 13.6 % (11.5-14.5); Segmented Neutrophils % 88.8 %
[2016-08-04 05:41] LABS: Hemoglobin 12.9 g/dL (11.5-15.4)
[2016-08-04] MEDS: *HR* OxyCODONE/APAP 5/325 TABLET PO PRN ×4 (07:07→22:16)
[2016-08-04] MEDS: Ringers Solution, Lactated 1,000 ML IVC SCH (14:55)
--- NOTE | 2016-08-04 17:40 | General Surgery Progress Note ---
Date of Encounter: 08/04/16 Time of Encounter: 17:34 Subjective Patient reports: still having pain Narrative: POD #1 - patient seen and examined approx 12N and again at this time Patient c/o persistent abdominal pain requiring Dilaudid for relief. No nausea but patient has eaten little since surgery Afebrile, 97.9; heart rate 73-82; respiratory rate 19, BP 153/84 Lungs: Clear to auscultation without obvious abdominal pain on deep inspiration Cardiac: Regular rate, no appreciable murmurs Abdomen: Soft, infraumbilical port site tenderness predominant; preoperative right lower quadrant abdominal pain markedly improved. Port sites intact and healing well. Hypoactive bowel sounds Laboratories: White count 13.0 (on admission 15.6); hemoglobin 12.9 with hematocrit 39.8 - diminished from preoperative likely due to perioperative IV fluids Impression: Postoperative day #1 - s/p laparoscopic appendectomy Still experiencing considerable pain not controlled with oral analgesics Plan: Continue observation and monitoring Increase Percocet 5/325 2 every 4 hours as needed Dilaudid for pain not relieved by oral medications. Repeat CBC in a.m. Objective Vital Signs - Last 8 Hours Temp Pulse Resp BP Pulse Ox 08/04/16 14:58 97.9 F 82 19 153/84 98 08/04/16 10:48 97.7 F 73 18 118/74 98 Intake and Output 08/04/16 08/04/16 08/04/16 07:59 15:59 23:59 Intake Total 1000 / 1000 1999 / 1999 Output Total 400 / 400 0 / 0 Balance 600 / 600 1999 Intake: IV Fluids 1000 / 1000 Lactated Ringers 1,000 ML 1000 / 1000 @ 50 mls/hr IVC .Q20H JAIR Rx#:[id number] Oral 1000 / 1000 1000 / 1000 Output: Urine 400 / 400 0 / 0 Other: # Voids 1 Weight 87.271 kg Patient Weight 08/04/16 23:59 Weight 87.271 kg - Labs 08/04/16 03:07 08/03/16 07:00 - VTE Documentation of Mechanical Device: Intermittent pneumatic compression device Consult Discharge Plan - Plan Referrals: NO,PCP [Primary Care Provider] -
[2016-08-04] MEDS ORDERED: Ringers Solution, Lactated 1,000 ML IVC ONE (17:41)
[2016-08-05] MEDS: *HR* OxyCODONE/APAP 5/325 TABLET PO PRN ×4 (03:11→17:20)
[2016-08-05] MEDS: *HR* HYDROmorphone (PF) 1 MG/ML SYRINGE IVP PRN (03:50)
[2016-08-05 04:57] LABS: Hematocrit 38.7 % (35.3-44.9); Hemoglobin 12.5 g/dL (11.5-15.4); Mean Corpuscular HGB Conc 32.3 g/dL (31.6-35.5); Mean Corpuscular Hemoglobin 28.4 pg (28.0-33.3); Mean Platelet Volume 9.9 fL (9.4-12.4); Platelet Count 232 K/mcL (140-400); Red Cell Distribution Width 13.9 % (11.5-14.5)
[2016-08-05] MEDS: Ringers Solution, Lactated 1,000 ML IVC SCH (08:24)
--- NOTE | 2016-08-05 14:33 | General Surgery Progress Note ---
Date of Encounter: 08/05/16 Time of Encounter: 14:26 Subjective Patient reports: no new complaints, feels better, tolerating a regular diet Narrative: General Surgery Progress Note / Discharge summary Postoperative day 2: Patient feeling much improved; pain significantly diminished. No nausea or vomiting. Afebrile, 97.3; pulse 78, respirations 16, blood pressure 127/79. Lungs: Clear; prior complaints of some right-sided pain with deep inspiration resolve. Likely diaphragmatic irritation from the insufflated gaseous carbon dioxide used during the laparoscopic procedure Abdomen: Soft, minimal persistent tenderness infraumbilical port site but the rest of the abdomen is nontender. Active bowel sounds. Port sites clean and dry. Laboratories: Leukocytosis resolved, 9.9; hemoglobin 12.5 with hematocrit 38.7; platelet count 232,000. Pathology still pending Impression: 21-year-old female who days status post laparoscopic appendectomy after presenting to [facility] ED, 08/03/16, with new onset right lower quadrant abdominal pain nausea and vomiting. Leukocytosis was evident along with a CT showing findings consistent with acute appendicitis. The clinical findings matched radiologic findings prompting a recommendation for appendectomy. This was completed laparoscopically without difficulty on . The patient tolerated the procedure well, however, complained of considerable abdominal pain for the first 24-36 hours postop. Those complaints have subsided and the patient has remained afebrile, hemodynamically stable. She is now ready for discharge home. Discharge diagnosis acute appendicitis; status post laparoscopic appendectomy Instructions: Patient may consume a regular diet Activity as tolerated; lifting limited to less than 20 pounds Patient may shower, wash incisions with soap and water Follow-up my office; 08/08/16; patient to call office to make this appointment Tylenol, ibuprofen, Motrin, Advil, Aleve, etc. as needed for pain Percocet 5/325, #15, one every 6 hours as needed for pain not relieved by [id number] medications. Objective - Labs 08/05/16 03:37 08/03/16 07:00 - VTE Documentation of Mechanical Device: Intermittent pneumatic compression device Consult Discharge Plan - Plan Referrals: Kirit Shelley MD [Non-Partnered Physician] -
--- NOTE | 2016-08-05 14:37 | Discharge Summary ---
Outpatient Proc Discharge Plan - Plan Additional Instructions: Regular diet Patient may shower, wash incision with soap and water Activities as tolerated; lifting limited to less than 20 pounds Follow-up in the office, 08/08/16; patient to call office to make this appointment Tylenol, ibuprofen, Motrin, Advil, Aleve, etc. as needed for pain Prescription for Percocet 5/325, #15, 1 every 6 hours as needed for pain not relieved by [id number] medications. Prescriptions: OxyCODONE/APAP 5/325 [Percocet 5/325 MG] 1 each PO Q6H PRN #15 tablet PRN Reason: Pain Home Medications: Acetaminophen [Tylenol] 650 mg PO Q6HR PRN #0 tablet 08/05/16 [Rx] OxyCODONE/APAP 5/325 [Percocet 5/325 MG] 1 each PO Q6H PRN #15 tablet 08/05/16 [ Rx]
[2016-08-05 17:43] VITALS: BP 119/75
== END 2016-08-05 17:58 | disposition home or self-care (01) | DRG 343 ==
LOC: 3ANU 05:38 → EMEROO 05:38 → 3ANU 12:05 → EMEROO 12:14
PROVIDERS: ADMIT Surgery; ATTEND Surgery

== ENCOUNTER → 2021-03-02 14:38 | Observation (INO) ==
[2021-03-02 13:55] LABS: Basophils % 0.3 %; Eosinophils # 0.2 K/mcL (0.0-0.6); Eosinophils % 1.5 %; Hematocrit 33.8 % (35.3-44.9); Hemoglobin 11.4 g/dL (11.5-15.4); Immature Granulocytes % 0.8 % (0-4); Lymphocytes # 1.3 K/mcL (0.6-4.6); Lymphocytes % 10.2 %; Mean Corpuscular HGB Conc 33.7 g/dL (31.6-35.5); Mean Corpuscular Hemoglobin 29.5 pg (28.0-33.3); Mean Corpuscular Volume 87.6 fL (83.0-100.0); Mean Platelet Volume 9.2 fL (9.4-12.4); Monocytes # 0.6 K/mcL (0.0-1.3); Monocytes % 4.7 %; Neutrophils # 10.1 K/mcL (1.6-8.9); Platelet Count 244 K/mcL (140-400); Red Blood Count 3.86 M/mcL (3.82-4.97); Red Cell Distribution Width 13.2 % (11.5-14.5); Segmented Neutrophils % 82.5 %; White Blood Count 12.2 K/mcL (4.3-11.1)
[2021-03-02 14:09] LABS: Protein/Creatinine Ratio,Urine 0.16 mg/mg (0.00-0.20)
== END | disposition home or self-care (01) ==
LOC: 1NENULAB
PROVIDERS: ADMIT Advanced Practice Midwife; ATTEND Advanced Practice Midwife